=== PATIENT | female | born 1985 | race Caucasian/White ===

== ENCOUNTER 2021-09-27 20:51 | Inpatient (IN) | payer BC ==
[2021-09-27 21:19] VITALS: BMI 30.9
[2021-09-27 22:02] LABS: Fetal Membranes Rupture RUPTURE DETECTED (No Rupture)
[2021-09-27] MEDS ORDERED: Promethazine HCl 25 MG/ML VIAL IM PRN (22:15)
[2021-09-27] MEDS ORDERED: Acetaminophen 500 MG TAB PO PRN (22:15)
[2021-09-27] MEDS ORDERED: Zolpidem Tartrate 5 MG TAB PO PRN (22:15)
[2021-09-27] MEDS ORDERED: Methylergonovine 0.2 MG/ML VIAL IM PRN (22:15)
[2021-09-27] MEDS ORDERED: Ondansetron PF 4 MG/2 ML Vial IVP PRN (22:15)
[2021-09-27] MEDS ORDERED: Lidocaine 1% (PF) 30 ML VIAL SC PRN (22:15)
[2021-09-27] MEDS ORDERED: Misoprostol 200 MCG TAB PR PRN (22:15)
[2021-09-27] MEDS ORDERED: Docusate 100 MG CAP PO PRN (22:15)
[2021-09-27] MEDS ORDERED: Carboprost 250 MCG/ML AMP IM PRN (22:15)
[2021-09-27] MEDS ORDERED: Butorphanol Tartrate 1 MG/ML VIAL SLOW IVP PRN (22:15)
[2021-09-27] MEDS ORDERED: Ibuprofen 800 MG TAB PO PRN (22:15)
[2021-09-27] MEDS ORDERED: Diphenoxylate HCl/Atropine Tablet PO PRN (22:15)
[2021-09-27] MEDS ORDERED: hydrALAZINE 20 MG/ML VIAL SLOW IVP PRN (22:15)
[2021-09-27] MEDS: Lactated Ringer's 1,000 ML IV SCH (22:30)
[2021-09-27] MEDS ORDERED: Penicillin G Potassium 5 MILL.UNITS in Sodium Chloride 0.9% 100 ML IVPB SCH (22:45)
[2021-09-27 23:10] LABS: Hemoglobin 9.7 g/dL (12.0-15.5); Mean Corpuscular HGB CONC 32.4 g/dL (32.0-36.0); Mean Corpuscular Hemoglobin 26.4 pg (27.0-33.0); Mean Corpuscular Volume 81.3 fl (81.6-98.3); Mean Platelet Volume 9.3 fl (7.4-10.4); Platelet Count 366 10x3/uL (150-450); RBC Distribution Width 15.5 % (11.5-14.5); Red Blood Cell (RBC) Count 3.68 10x6/uL (3.90-5.03); White Blood Cell (WBC) Count 9.3 10x3/uL (3.5-10.5)
[2021-09-27 23:40] LABS: Hep B Surf Ag Non-Reactive S/CO (NonReactive); Syphilis Antibody Nonreactive (Nonreactive); Syphilis Antibody Index 0.09 S/CO (<1.00 Non-Reactive)
[2021-09-27 23:49] LABS: HBSAg Index 0.15 S/CO (0-0.99)
[2021-09-28 00:21] LABS: SARS-CoV-2 NAA Rapid Test Not Detected (NotDetected)
[2021-09-28] MEDS: Penicillin G 2.5 MILL.units 2.5 MILL.UNITS in Premix Bag 1 BAG IVPB SCH ×4 (02:50→14:54)
[2021-09-28] MEDS: Lactated Ringer's 1,000 ML IV SCH ×2 (07:20→14:16)
[2021-09-28] MEDS ORDERED: NS w/ Oxytocin 30 units 500 ML IV SCH ×3 (08:00→16:48)
[2021-09-28] MEDS: NS w/ Oxytocin 30 units 500 ML IV SCH ×2 (08:39→16:21)
[2021-09-28] MEDS ORDERED: metroNIDAZOLE 500 MG TAB PO SCH (09:00)
[2021-09-28] MEDS ORDERED: Fentanyl 2 mcg/Bup 0.1% Cadd 100 ML ONE (14:05)
[2021-09-28] MEDS ORDERED: ePHEDrine Sulfate 50 MG/10 ML VIAL SLOW IVP PRN (14:41)
[2021-09-28] MEDS ORDERED: Hydrocerin (Eucerin) Cream 120 gm Jar TOP PRN (14:41)
[2021-09-28] MEDS ORDERED: diphenhydrAMINE 50 MG/ML VIAL IVP PRN (14:41)
[2021-09-28] MEDS ORDERED: Ondansetron PF 4 MG/2 ML Vial IVP PRN (14:41)
[2021-09-28] MEDS ORDERED: Promethazine HCl 25 MG/ML VIAL IM PRN (14:41)
[2021-09-28] MEDS ORDERED: Naloxone HCl 0.4 mg/ml Vial IVP PRN ×2 (14:41)
[2021-09-28] MEDS ORDERED: Lactated Ringer's 500 ML IV PRN (14:41)
[2021-09-28] MEDS ORDERED: Acetaminophen 325 MG TAB PO PRN (14:41)
[2021-09-28] MEDS ORDERED: Fentanyl 2 mcg/Bupivacaine 0.1% Cassette 100 ML EPIDURAL SCH (14:45)
[2021-09-28] MEDS ORDERED: Communication Order-Pharmacy FS SCH (14:45)
[2021-09-28] MEDS ORDERED: Lanolin Ointment 7 GM TUBE TOP PRN (16:48)
[2021-09-28] MEDS ORDERED: Benzocaine-Menthol 82.5 ML CAN TOP PRN (16:48)
[2021-09-28] MEDS ORDERED: hydrALAZINE 20 MG/ML VIAL SLOW IVP PRN (16:48)
[2021-09-28] MEDS ORDERED: Preparation H Ointment 28 GM TUBE PR PRN (16:48)
[2021-09-28] MEDS ORDERED: Boostrix 0.5 ML (Tdap) VIAL IM ONE (16:48)
[2021-09-28] MEDS ORDERED: Milk Of Magnesia 30 ML UDCUP PO PRN (16:48)
[2021-09-28] MEDS ORDERED: HYDROcodone/Acetaminophen 5/325 mg Tablet PO PRN (16:48)
[2021-09-28] MEDS ORDERED: Bisacodyl 10 MG SUPP PR PRN (16:48)
[2021-09-28] MEDS ORDERED: diphenhydrAMINE 25 MG CAP PO PRN (16:48)
[2021-09-28] MEDS: Ferrous Sulfate 325 MG TAB PO SCH (18:34)
[2021-09-28] MEDS ORDERED: Ibuprofen 800 MG TAB PO SCH ×2 (18:45)
[2021-09-28] MEDS: Ibuprofen 800 MG TAB PO SCH (22:54)
[2021-09-28] MEDS: Docusate Calcium (SURFAK) 240 MG CAP PO SCH (22:58)
[2021-09-28] MEDS: HYDROcodone/Acetaminophen 5/325 mg Tablet PO PRN (22:58)
[2021-09-29] MEDS: Ibuprofen 800 MG TAB PO SCH ×2 (06:07→13:22)
[2021-09-29 07:52] VITALS: TEMP 98.9
[2021-09-29] MEDS: Ferrous Sulfate 325 MG TAB PO SCH (08:20)
[2021-09-29] MEDS: Docusate Calcium (SURFAK) 240 MG CAP PO SCH (08:21)
[2021-09-29] MEDS ORDERED: Prenatal Vitamin 1 TAB PO SCH (09:00)
[2021-09-29] MEDS: HYDROcodone/Acetaminophen 5/325 mg Tablet PO PRN (13:21)
[2021-09-29 17:13] VITALS: BP 136/89
== END 2021-09-29 17:30 | disposition home or self-care (01) | DRG 805 ==
LOC: CSHLD/OP 20:51 → CSHLD 20:52 → CSHPP 09-28 18:25
PROVIDERS: ADMIT Obstetrics & Gynecology; ATTEND Obstetrics & Gynecology
PROC: 10E0XZZ Delivery of Products of Conception, External Approach (ICD-10-PCS; principal; 2021-09-28)
DX: O42.02 Full-term premature rupture of membranes, onset of labor within 24 hours of rupture (principal); O75.3 Other infection during labor; Z37.0 Single live birth; Z3A.39 39 weeks gestation of pregnancy; O99.824 Streptococcus B carrier state complicating childbirth; Z20.822 Contact with and (suspected) exposure to COVID-19
CPT/HCPCS: 36415; 51702; 84112; 85027; 86780; 86850; 86900; 86901; 87340; 87480; 87510; 87660; 99285; J0595; J2540; J2590; J3490; J7120; U0002

== ENCOUNTER 2021-12-25 09:36 | Outpatient (CLI) | payer BC ==
[2021-12-25 10:32] LABS: Hemoglobin 11.8 g/dL (12.0-15.5); Mean Corpuscular HGB CONC 32.8 g/dL (32.0-36.0); Mean Corpuscular Hemoglobin 26.8 pg (27.0-33.0); Mean Corpuscular Volume 81.6 fl (81.6-98.3); Mean Platelet Volume 8.9 fl (7.4-10.4); Platelet Count 319 10x3/uL (150-450); RBC Distribution Width 18.2 % (11.5-14.5); Red Blood Cell (RBC) Count 4.41 10x6/uL (3.90-5.03); White Blood Cell (WBC) Count 6.3 10x3/uL (3.5-10.5)
[2021-12-25 10:43] LABS: BHCG - Serum Negative (NEGATIVE); Pregs Control Background? CLEAR/WHITE (CLR/WHITE); Pregs Control Bar Appear? YES (CONTROL BAR)
[2021-12-26 02:40] LABS: SARS-CoV-2 PCR by NAA DETECTED (NotDetected)
== END 2021-12-25 09:37 | disposition home or self-care (01) ==
LOC: CSHLAB 09:36
PROVIDERS: ATTEND Obstetrics & Gynecology
DX: U07.1 COVID-19 (principal)
CPT/HCPCS: 84703; 85027; 86850; 86900; 86901; U0003; U0005

== ENCOUNTER 2021-12-28 10:10 | Day surgery (SDC) | payer BC ==
[2021-12-25 10:32] LABS: Hemoglobin 11.8 g/dL (12.0-15.5); Mean Corpuscular HGB CONC 32.8 g/dL (32.0-36.0); Mean Corpuscular Hemoglobin 26.8 pg (27.0-33.0); Mean Corpuscular Volume 81.6 fl (81.6-98.3); Mean Platelet Volume 8.9 fl (7.4-10.4); Platelet Count 319 10x3/uL (150-450); RBC Distribution Width 18.2 % (11.5-14.5); Red Blood Cell (RBC) Count 4.41 10x6/uL (3.90-5.03); White Blood Cell (WBC) Count 6.3 10x3/uL (3.5-10.5)
[2021-12-25 10:43] LABS: BHCG - Serum Negative (NEGATIVE); Pregs Control Background? CLEAR/WHITE (CLR/WHITE); Pregs Control Bar Appear? YES (CONTROL BAR)
[2021-12-25 14:14] VITALS: BMI 27.4
[2021-12-26 02:40] LABS: SARS-CoV-2 PCR by NAA DETECTED (NotDetected)
[2021-12-28] MEDS ORDERED: CeleCOXIB 100 MG CAP ONE (10:24)
[2021-12-28] MEDS ORDERED: Lidocaine 1% MPF 2 ML VIAL ONE (10:24)
[2021-12-28] MEDS ORDERED: Famotidine/PF 20 mg/2ml Vial ONE (10:24)
[2021-12-28] MEDS ORDERED: Fentanyl 100 MCG/2 ML VIAL ONE (11:28)
[2021-12-28] MEDS ORDERED: Midazolam HCl 2 mg/2 ml Vial ONE (11:28)
[2021-12-28] MEDS ORDERED: PROPOFOL 20 ML ONE (11:28)
[2021-12-28] MEDS ORDERED: Dexamethasone 4 mg/ml Vial ONE (11:29)
[2021-12-28] MEDS ORDERED: Ondansetron PF 4 MG/2 ML Vial ONE (11:29)
[2021-12-28] MEDS ORDERED: Lidocaine 2% PF 5 ML VIAL ONE (11:30)
[2021-12-28] MEDS ORDERED: ceFAZolin 2 GM/Dextrose 50 ML IVPB ONE (11:59)
[2021-12-28] MEDS ORDERED: Ketorolac Tromethamine 30 MG/ML VIAL ONE (12:36)
== END 2021-12-28 14:13 | disposition home or self-care (01) ==
LOC: CSHSDC 10:10
PROVIDERS: ATTEND Obstetrics & Gynecology
PROC: 0UDB7ZX Extraction of Endometrium, Via Natural or Artificial Opening, Diagnostic (ICD-10-PCS; principal; 2021-12-28)
PROC: 0UJD8ZZ Inspection of Uterus and Cervix, Via Natural or Artificial Opening Endoscopic (ICD-10-PCS; principal; 2021-12-28)
DX: O72.1 Other immediate postpartum hemorrhage (principal); U07.1 COVID-19
CPT/HCPCS: 84703; 85027; 86850; 86900; 86901; 88305; J0690; J1100; J1885; J2001; J2250; J2405; J2704; J3010; S0028; U0003; U0005